=== PATIENT | male | born 1975 | race Caucasian/White ===

== ENCOUNTER 2016-10-24 06:11 | Day surgery (SDC) | payer BC, OTHER ==
[~2016-10-24 06:11] MED LIST: ACETAMINOPHEN 325 MG TABLET PO PRN; BACITRACIN IR PRN; DEXAMETHASONE SOD PHOSPHATE 10 MG/ML VIAL IV PRN; MORPHINE SULFATE 10 MG/ML SYRG IV PRN; MORPHINE SULFATE 4 MG/ML SYRG IV PRN; ONDANSETRON HCL/PF 2 MG/ML VIAL IV PRN; RINGERS LACTATED IR PRN; RINGERS SOLUTION,LACTATED 1,000 ML IV PRN; [UNRECOGNIZED DRUG - OTHER] IR PRN; ceFAZolin SODIUM 1 GM in DEXTROSE 5 % IN WATER 100 ML IV PRN
--- OUTSIDE RECORDS SUMMARY | 2016-10-24 06:14 | XMS REPORT | Continuity of Care Document ---
:1975 Author Organization [facility] ([facility]) Address [address] [place] [address] Phone [phone] Care Team Providers Name Role Phone Provider, No-Primary Care Primary Care Provider Unavailable Source Comments This disclosure is being made pursuant to the Care Everywhere program, applicable federal and state laws, and may not contain all informaitonavailable regarding this patient.[facility] ([facility]) Active Allergies and Adverse Reactions No Known Allergies Current Medications No known medications Active Problems Not on file Social History Tobacco Use Types Packs/Day Years Used Date Never Smoker Last Filed Vital Signs Vital Sign Reading Time Taken Blood Pressure 148/82 06/12/2012 10:21 AM [employer] Pulse 83 06/12/2012 10:21 AM [employer] Temperature 36.5 C (97.7 F) 06/12/2012 10:21 AM [employer] Respiratory Rate 16 06/12/2012 10:21 AM [employer] Height 1.727 m (5' 8") 06/12/2012 10:21 AM [employer] Weight 81.647 kg (180 lb) 06/12/2012 10:21 AM [employer] Body Mass Index 27.38 06/12/2012 10:21 AM [employer] Oxygen Saturation 100% 06/12/2012 10:21 AM [employer] Plan of Care Health Maintenance Due Date Last Done Comments Hepatitis B Vaccine (1 of 3 - Primary Series) 1975 Tdap Vaccine 12/20/1987 Lipid Disorder Screening 1994 MMR Vaccine 1994 Td Vaccine 1994 Influenza Vaccine: Seasonal (#1) 02/05/2016 Results from Last 3 Months Not on file
[2016-10-24] MEDS: OXYMETAZOLINE HCL 150 SPRAY BTL NS PRN ×2 (06:36→07:03)
[2016-10-24] MEDS ORDERED: RINGERS SOLUTION,LACTATED 1,000 ML IV ONE (06:44)
[2016-10-24] MEDS ORDERED: MUPIROCIN 22 APPL TUBE TP ONE (07:26)
[2016-10-24] MEDS ORDERED: LIDOCAINE HCL/EPINEPHRINE 50 ML VIAL IJ ONE (07:27)
[2016-10-24] MEDS ORDERED: TRIAMCINOLONE ACETONIDE 40 MG/ML VIAL TP ONE ×3 (07:27)
[2016-10-24] MEDS ORDERED: COCAINE HCL 4 APPL BTL TP ONE (07:27)
[2016-10-24] MEDS ORDERED: HYDROcodone/ACETAMINOPHEN 1 EACH TABLET PO PRN ×2 (09:01)
[2016-10-24 10:01] VITALS: BP 155/93
== END 2016-10-24 06:12 | disposition home or self-care (01) ==
LOC: SUR 06:11
PROVIDERS: ATTEND Allergy & Immunology
PROC: 099R4ZZ Drainage of Left Maxillary Sinus, Percutaneous Endoscopic Approach (ICD-10-PCS; 2016-10-24)
PROC: 099Q4ZZ Drainage of Right Maxillary Sinus, Percutaneous Endoscopic Approach (ICD-10-PCS; 2016-10-24)
PROC: 09BL0ZZ Excision of Nasal Turbinate, Open Approach (ICD-10-PCS; 2016-10-24)
PROC: 09BV0ZZ Excision of Left Ethmoid Sinus, Open Approach (ICD-10-PCS; principal; 2016-10-24 07:00)
PROC: 09BU0ZZ Excision of Right Ethmoid Sinus, Open Approach (ICD-10-PCS; 2016-10-24 07:00)
DX: J32.2 Chronic ethmoidal sinusitis (principal); J32.0 Chronic maxillary sinusitis; J34.3 Hypertrophy of nasal turbinates; G47.33 Obstructive sleep apnea (adult) (pediatric); F17.200 Nicotine dependence, unspecified, uncomplicated